=== PATIENT | female | born 1985 | race African-American/Black ===

== ENCOUNTER 2017-01-27 09:01 | Emergency (ER) | payer OTHER ==
[2017-01-27 09:07] VITALS: TEMP 98.2; BMI 32.3
[2017-01-27] MEDS ORDERED: ACETAMINOPHEN 325 MG TABLET (FP) PO ONE (09:24)
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
[2017-01-27] MEDS ORDERED: ACETAMINOPHEN 325 MG TABLET (FP) ONE (09:29)
[2017-01-27 10:59] LABS: CALCIUM 9.2 mg/dL (8.5-10.1); COCKROFT - GAULT 196.3415; CREATININE 0.6 mg/dL (0.55-1.02)
[2017-01-27 11:06] LABS: MCH 28.4 pg (25.7-33.7); MCHC 33.2 g/dl (32.0-36.0); MEAN CELL VOLUME 85.5 fl (80-96); PLATELET COUNT 252 K/MM3 (134-434); RDW 14.3 % (11.6-15.6); WHITE BLOOD COUNT 4.8 K/mm3 (4.0-10.0)
[2017-01-27 11:07] LABS: EOSINOPHIL 7.7 % (0-4.5); MEAN PLT VOLUME 9.1 fl (7.5-11.1)
[2017-01-27 11:36] LABS: URINE APPEARANCE CLEAR; URINE BILIRUBIN NEGATIVE (NEGATIVE); URINE COLOR LTYELLOW; URINE GLUCOSE (UA) NEGATIVE (NEGATIVE); URINE KETONE NEGATIVE (NEGATIVE); URINE LEUK ESTERASE NEGATIVE (NEGATIVE); URINE NITRITE NEGATIVE (NEGATIVE); URINE PROTEIN NEGATIVE (NEGATIVE); URINE UROBILINOGEN NEGATIVE E.U./dl (0.2-1.0)
[2017-01-27 11:39] LABS: URINE BLOOD 1+ (NEGATIVE)
[2017-01-27 11:47] LABS: URINE MUCUS RARE; URINE RBC <1 /hpf (0-3); URINE WBC 1 /hpf (3-5)
[2017-01-27 14:00] VITALS: BP 118/64; PULSE 70
== END 2017-01-27 14:00 | disposition home or self-care (01) ==
LOC: JER 09:01
DX: O26.891 Other specified pregnancy related conditions, first trimester (principal); O20.8 Other hemorrhage in early pregnancy; Z3A.00 Weeks of gestation of pregnancy not specified; O34.81 Maternal care for other abnormalities of pelvic organs, first trimester; N83.12 Corpus luteum cyst of left ovary
CPT/HCPCS: 36415; 76801-TC; 80048; 81003; 81015; 84702; 85025; 87086; 99283-25